=== PATIENT | female | born 2005 | race Caucasian/White ===

== ENCOUNTER 2025-03-19 13:19 | Emergency (ER) | payer MEDICAID ==
[~2025-03-19] VITALS: Ht 152.4 cm; Wt 59.0 kg
[2025-03-19 13:27] VITALS: O2SAT 99
[2025-03-19] MEDS ORDERED: ACET-2708 MT (14:17)
[2025-03-19] MEDS: BACITRACIN ZINC OINT UDPKT TOP ONE (15:06)
[2025-03-19 15:07] VITALS: BP 103/62; PULSE 65; RESP 16; TEMP 36.8; O2SAT 99
== END 2025-03-19 15:13 | disposition home or self-care (01) ==
LOC: ER 13:19
DX: S50.311A Abrasion of right elbow, initial encounter (principal); M79.641 Pain in right hand; M25.521 Pain in right elbow; X58.XXXA Exposure to other specified factors, initial encounter; Y93.89 Activity, other specified; Y92.89 Other specified places as the place of occurrence of the external cause; Y99.8 Other external cause status
CPT/HCPCS: 99283; 73080; A6449